=== PATIENT | female | born 1950 | race Two or more races ===

== ENCOUNTER 2020-01-04 12:40 | Inpatient (IN) | payer OTHER ==
[~2020-01-04] VITALS: Ht 162.6 cm; Wt 74.8 kg
[2020-01-04] MEDS ORDERED: ATORVASTATIN CA20 MG PO (12:51)
[2020-01-04] MEDS ORDERED: IRBESARTAN300 MG PO (12:52)
[2020-01-04] MEDS ORDERED: DICLOFENAC SODI75 MG PO (12:52)
[2020-01-11] MEDS ORDERED: INTESTINEX680 M1 PO (16:27)
[2020-01-11] MEDS ORDERED: LEVAQUIN500 MG PO (16:27)
== END 2020-01-11 19:19 | disposition home or self-care (01) | DRG 862 ==
LOC: ER 12:40 → SEC-K 18:29 → SURH 18:29 → MEDI 01-08 13:34
PROVIDERS: ADMIT Internal Medicine; ATTEND Internal Medicine
PROC: B54CZZZ Ultrasonography of Left Lower Extremity Veins (ICD-10-PCS; principal; 2020-01-05)
PROC: BQ3MZZZ Magnetic Resonance Imaging (MRI) of Left Foot (ICD-10-PCS; 2020-01-05)
DX: T81.40XA Infection following a procedure, unspecified, initial encounter (principal); E11.00 Type 2 diabetes mellitus with hyperosmolarity without nonketotic hyperglycemic-hyperosmolar coma (NKHHC); L03.116 Cellulitis of left lower limb; N17.9 Acute kidney failure, unspecified; E11.621 Type 2 diabetes mellitus with foot ulcer; L97.522 Non-pressure chronic ulcer of other part of left foot with fat layer exposed; E11.65 Type 2 diabetes mellitus with hyperglycemia; F32.9 Major depressive disorder, single episode, unspecified; E11.51 Type 2 diabetes mellitus with diabetic peripheral angiopathy without gangrene; E78.5 Hyperlipidemia, unspecified; E11.42 Type 2 diabetes mellitus with diabetic polyneuropathy; E11.319 Type 2 diabetes mellitus with unspecified diabetic retinopathy without macular edema; I12.9 Hypertensive chronic kidney disease with stage 1 through stage 4 chronic kidney disease, or unspecified chronic kidney disease; N18.9 Chronic kidney disease, unspecified; B96.20 Unspecified Escherichia coli [E. coli] as the cause of diseases classified elsewhere; B96.4 Proteus (mirabilis) (morganii) as the cause of diseases classified elsewhere; B95.2 Enterococcus as the cause of diseases classified elsewhere; Y83.8 Other surgical procedures as the cause of abnormal reaction of the patient, or of later complication, without mention of misadventure at the time of the procedure; Z79.4 Long term (current) use of insulin; Z20.828 Contact with and (suspected) exposure to other viral communicable diseases; Z91.14 Patient's other noncompliance with medication regimen

== ENCOUNTER 2020-01-17 10:16 | Emergency (ER) | payer OTHER ==
[~2020-01-17] VITALS: Ht 154.9 cm; Wt 58.5 kg
[~2020-01-17 10:16] MED LIST: ATORVASTATIN CA20 MG PO; DICLOFENAC SODI75 MG PO; INTESTINEX680 M1 PO; IRBESARTAN300 MG PO; LEVAQUIN500 MG PO
[2020-01-17] MEDS ORDERED: LANTUS SOL100 UNIT/1 SUBCUTANEO (17:33)
[2020-01-17] MEDS ORDERED: METFORMIN HCL1000 M3 PO (17:33)
== END 2020-01-17 18:48 | disposition home or self-care (01) ==
LOC: ER 10:16
DX: E11.65 Type 2 diabetes mellitus with hyperglycemia (principal); Z20.828 Contact with and (suspected) exposure to other viral communicable diseases

== ENCOUNTER 2020-05-20 17:11 | Emergency (ER) | payer OTHER ==
[~2020-05-20] VITALS: Ht 157.5 cm; Wt 72.6 kg
[~2020-05-20 17:11] MED LIST changes: +LANTUS SOL100 UNIT/1 SUBCUTANEO; +METFORMIN HCL1000 M3 PO
[2020-05-20] MEDS ORDERED: GRALISE600 MG (17:24)
== END 2020-05-20 23:51 | disposition home or self-care (01) ==
LOC: ER 17:11
DX: S20.213A Contusion of bilateral front wall of thorax, initial encounter (principal); R55 Syncope and collapse; W18.39XA Other fall on same level, initial encounter; Y93.89 Activity, other specified; Y92.018 Other place in single-family (private) house as the place of occurrence of the external cause; Y99.8 Other external cause status

== ENCOUNTER 2020-07-03 09:53 | Inpatient (IN) | payer OTHER ==
[~2020-07-03] VITALS: Ht 157.5 cm; Wt 86.2 kg
[~2020-07-03 09:53] MED LIST changes: +GRALISE600 MG
[2020-07-04] MEDS ORDERED: SIMVASTATIN20 MG (08:54)
[2020-07-04] MEDS ORDERED: JENTADUETO 2.51 EAC2 (08:54)
[2020-07-04] MEDS ORDERED: IRBESARTAN-HCT1 EAC1 (08:54)
== END 2020-07-05 15:59 | disposition home or self-care (01) | DRG 493 ==
LOC: ER 09:53 → SURH 14:28
PROVIDERS: ADMIT Orthopaedic Surgery; ATTEND Orthopaedic Surgery
PROC: 0PBB0ZZ Excision of Left Clavicle, Open Approach (ICD-10-PCS; 2020-07-04)
PROC: 0RQM0ZZ Repair Left Elbow Joint, Open Approach (ICD-10-PCS; 2020-07-04)
PROC: 0PHD06Z Insertion of Intramedullary Internal Fixation Device into Left Humeral Head, Open Approach (ICD-10-PCS; principal; 2020-07-04 09:00)
DX: S42.292A Other displaced fracture of upper end of left humerus, initial encounter for closed fracture (principal); L97.422 Non-pressure chronic ulcer of left heel and midfoot with fat layer exposed; W18.39XA Other fall on same level, initial encounter; E11.65 Type 2 diabetes mellitus with hyperglycemia; E11.621 Type 2 diabetes mellitus with foot ulcer; Z79.4 Long term (current) use of insulin; Z20.822 Contact with and (suspected) exposure to COVID-19; D16.7 Benign neoplasm of ribs, sternum and clavicle

== ENCOUNTER 2020-09-10 07:45 | Outpatient (CLI) | payer OTHER ==
[~2020-09-10 07:45] MED LIST changes: +IRBESARTAN-HCT1 EAC1; +JENTADUETO 2.51 EAC2; +SIMVASTATIN20 MG
== END 2020-09-10 07:56 | disposition home or self-care (01) ==
LOC: EDBD 07:45 → MRI 07:45
PROVIDERS: ATTEND Orthopaedic Surgery
DX: Z12.31 Encounter for screening mammogram for malignant neoplasm of breast (principal); N64.59 Other signs and symptoms in breast; I10 Essential (primary) hypertension; M54.5 Low back pain; E55.9 Vitamin D deficiency, unspecified; E11.9 Type 2 diabetes mellitus without complications; E11.42 Type 2 diabetes mellitus with diabetic polyneuropathy; E11.65 Type 2 diabetes mellitus with hyperglycemia; I73.89 Other specified peripheral vascular diseases; Z79.4 Long term (current) use of insulin; Z79.84 Long term (current) use of oral hypoglycemic drugs; E16.2 Hypoglycemia, unspecified; E16.0 Drug-induced hypoglycemia without coma; M66.872 Spontaneous rupture of other tendons, left ankle and foot
CPT/HCPCS: 73218

== ENCOUNTER 2020-11-27 10:32 | Emergency (ER) | payer OTHER ==
[~2020-11-27] VITALS: Ht 157.5 cm; Wt 65.8 kg
[2020-11-27] MEDS ORDERED: FOSAMAX70 MG PO (10:54)
[2020-11-27] MEDS ORDERED: MORGIDOX100 MG PO (15:34)
== END 2020-11-27 15:56 | disposition home or self-care (01) ==
LOC: ER 10:32 → EDBD 11:39 → ER 15:56
DX: S90.821A Blister (nonthermal), right foot, initial encounter (principal); L03.113 Cellulitis of right upper limb; W22.8XXA Striking against or struck by other objects, initial encounter; Y93.89 Activity, other specified; Y92.89 Other specified places as the place of occurrence of the external cause; Y99.8 Other external cause status; E11.9 Type 2 diabetes mellitus without complications